=== PATIENT | male | born 1960 | race Caucasian/White ===

== ENCOUNTER 2018-04-01 10:44 | Emergency (ER) | payer SELFPAY ==
[2018-04-01 10:50] VITALS: TEMP 97.8; BMI 32.8
[2018-04-01] MEDS ORDERED: EPINEPHrine/PF 1 MG/1 ML (1:1,000) AMPULE ONE (10:54)
[2018-04-01] MEDS ORDERED: ALBUTEROL SO4 0.083% IH SOL 2.5 MG/3 ML VIAL.NEB. NEB ONE ×3 (10:55→11:44)
[2018-04-01] MEDS ORDERED: FAMOTIDINE 20 MG/50 ML IVPB 20 MG/50 ML MG IVPB ONE ×2 (11:00→11:03)
[2018-04-01] MEDS ORDERED: methylPREDNISolone NA SUCC 125 MG/2 ML VIAL ONE ×2 (11:00→17:36)
[2018-04-01] MEDS ORDERED: EPINEPHrine 1:1,000 0.3 MG/0.3 ML SYR IM ONE (11:02)
[2018-04-01] MEDS ORDERED: methylPREDNISolone NA SUCC 125 MG/2 ML VIAL IVPUSH ONE (11:03)
--- NOTE | 2018-04-01 11:05 | PDOC ---
History of Present Illness - General History Source: Patient, Friend - History of Present Illness Initial Comments: Patient is a 57 year old Armenian speaking male, who presents with allergic reaction s/p bee sting. Upon arrival to the ER patient complains of shortness of breath and generalized body itching. Allergies: Bees (throat swelling) <Roberta Spring - Last Filed: 04/01/18 13:48> <Maikol Doshi - Last Filed: 04/01/18 17:38> - General Chief Complaint: Allergic Reaction Stated Complaint: ALLERGIC REACTION Time Seen by Provider: 04/01/18 11:02 Past History <Roberta Spring - Last Filed: 04/01/18 13:48> - Past Medical History CVA: No COPD: No - Suicide/Smoking/Psychosocial Hx Smoking History: Never smoked Information on smoking cessation initiated: No Hx Alcohol Use: No Drug/Substance Use Hx: No Substance Use Type: None <Maikol Doshi - Last Filed: 04/01/18 17:38> - Past Medical History Allergies/Adverse Reactions: Allergies Allergy/AdvReac Type Severity Reaction Status Date / Time bee venom protein (honey bee) Allergy Verified 04/01/18 10:50 Home Medications: Ambulatory Orders EPINEPHrine (EPI-PEN 0.3MG) [Epipen 0.3MG -] 0.3 mg IM ASDIR #2 pens 04/01/18 predniSONE [Deltasone -] 40 mg PO DAILY #10 tablet 04/01/18 Review of Systems - Review of Systems Comments:: CONSTITUTIONAL: No fever, no chills, no fatigue EYES: No visual changes ENT: +oropharynx swelling. No ear pain, no sore throat CARDIOVASCULAR: No chest pain, no palpitations RESPIRATORY: No cough, +dyspnea, +tachypnea GI: No abdominal pain, no nausea, no vomiting, no constipation, no diarrhea GENITOURINARY: No dysuria, no frequency, no hematuria MUSKULOSKELETAL: No back pain, no joint pain, no myalgias SKIN: NEURO: No headache <Roberta Spring - Last Filed: 04/01/18 13:48> *Physical Exam - Vital Signs Last Vital Signs Temp Pulse Resp BP Pulse Ox 97.8 F 95 H 18 125/85 90 L 04/01/18 10:47 04/01/18 10:47 04/01/18 10:47 04/01/18 10:47 04/01/18 10:47 - Physical Exam Comments: Seen immediately on arrival CONSTITUTIONAL: Well-appearing; well-nourished; in no apparent distress HEAD: Normocephalic; atraumatic EYES: PERRL; EOM intact ENMT: External appears normal; normal oropharynx NECK: Supple; nontender; no cervical lymphadenopathy CARD: Normal S1, S2; no murmurs, rubs, or gallops RESP: Normal chest excursion with respiration; breath sounds clear and equal bilaterally; no wheezes, rhonchi, or rales ABD: Soft, non-distended; non-tender; no palpable organomegaly, no palpable hernias EXT: Normal ROM in all four extremities; non-tender to palpation; distal pulses intact SKIN: Warm, dry, no rash NEURO: No focal neurological deficiencies. injected conjuntiva. Uvula mildy strinodr on neck, ins and exp wheezing. Skin- diffuse blanching errythema <Roberta Spring - Last Filed: 04/01/18 13:48> - Vital Signs Last Vital Signs Temp Pulse Resp BP Pulse Ox 97.8 F 95 H 18 125/85 90 L 04/01/18 10:47 04/01/18 10:47 04/01/18 10:47 04/01/18 10:47 04/01/18 10:47 <Maikol Doshi - Last Filed: 04/01/18 17:38> Medical Decision Making - Medical Decision Making 04/01/18 11:04 Patient assessed immediately upon arrival. Patient reports an ALLERGIC reaction due to hornet sting. On evaluation, patient is mildly dyspneic, tachypneic and tachycardic. Respiratory stridor is noted. Inspiratory and expiratory wheezing is noted as well. Uvula is minimally edematous. Conjunctivae were injected bilaterally. Diffuse erythroderma is noted. Anaphylactic reaction is suspected. We'll administer epinephrine, albuterol nebulizer, Solu-Medrol, Benadryl and Pepcid. Will observe for airway deterioration. Will reassess. 04/01/18 11:57 Patient reassessed. Patient improved clinically. Stridor is no longer audible. Erythroderma has resolved. End expiratory wheezing is present in all lung cobb. Will continue with albuterol nebulizer therapy at this time. 04/01/18 14:33 Patient resting comfortably. No adventitious lung sounds are appreciated. 04/01/18 17:26 Patient is resting comfortably, symptom-free. Oxygen saturation is noted to be 97% on room air. No wheezing or stridor is identified. Patient safe to discharge. We'll administer additional dose of Solu-Medrol which will cover the patient for the rest of the day and patient will start taking prednisone in 12 hours. <Maikol Doshi - Last Filed: 04/01/18 17:38> *DC/Admit/Observation/Transfer - Attestations Scribe Attestion: 04/01/18 11:14 Documentation prepared by Roberta Spring, acting as medical leader for Maikol Doshi MD. <Roberta Spring - Last Filed: 04/01/18 13:48> - Attestations Physician Attestion: 04/01/18 14:33 The documentation was prepared by the scribe under my direct supervision. I have reviewed the documentation which correctly represents the findings, medical decision-making and critical action taken by me. <Maikol Doshi - Last Filed: 04/01/18 17:38> Diagnosis at time of Disposition: Allergic reaction to bee sting - Discharge Dispostion Disposition: HOME Condition at time of disposition: Stable - Referrals Referrals: Scott Rubio MD [Staff Physician] - - Patient Instructions Printed Discharge Instructions: DI for General Allergic Reactions Additional Instructions: Take Benadryl-25 mg every 4 hours as needed. Take Pepcid 20 mg twice daily for the next 5 days. Return immediately for worsening symptoms.
[2018-04-01 17:25] VITALS: BP 129/89; PULSE 103
[2018-04-01] MEDS ORDERED: methylPREDNISolone NA SUCC 40 MG/1 ML VIAL IVPUSH ONE (17:26)
== END 2018-04-01 18:14 | disposition home or self-care (01) ==
LOC: JER 10:44
PROC: 3E033GC Introduction of Other Therapeutic Substance into Peripheral Vein, Percutaneous Approach (ICD-10-PCS; principal; 2018-04-01)
PROC: 3E0337Z Introduction of Electrolytic and Water Balance Substance into Peripheral Vein, Percutaneous Approach (ICD-10-PCS; 2018-04-01)
DX: T78.49XA Other allergy, initial encounter (principal); W57.XXXA Bitten or stung by nonvenomous insect and other nonvenomous arthropods, initial encounter
CPT/HCPCS: 99284-25